=== PATIENT | male | born 1945 | race Caucasian/White ===

== ENCOUNTER 2018-10-30 06:56 | Day surgery (SDC) | payer MEDICARE ==
[~2018-10-30 06:56] MED LIST: ACETAMINOPHEN 1,000 MG/100 ML BTL IVPB ONE
[2018-10-30] MEDS ORDERED: PROPOFOL 10 MG/ML VIAL IV ONE (06:57)
[2018-10-30] MEDS ORDERED: MIDAZOLAM HCL 2MG/2ML VIAL IV ONE (06:57)
[2018-10-30] MEDS ORDERED: FENTANYL PF 100MCG/2ML VIAL IV ONE (06:57)
[2018-10-30] MEDS ORDERED: LIDOCAINE 2% MDV (20MG/ML) 20ML VIAL IV ONE (06:57)
[2018-10-30] MEDS ORDERED: RINGERS SOLUTION,LACTATED 1,000 ML IV ONE (07:45)
[2018-10-30] MEDS ORDERED: BUPIVACAINE 0.25% W/EPI MPF 30ML VIAL SQ ONE (09:09)
--- NOTE | 2018-10-31 09:00 | Operative Note ---
DATE OF SURGERY: 10/30/2018 SURGEON: Scott Monreal DO PREOPERATIVE DIAGNOSIS: Left lower extremity mass. POSTOPERATIVE DIAGNOSIS: Left lower extremity mass. OPERATION: Excision of left lower extremity mass measuring 3 cm down to the fascia. INDICATION: The patient is a 72-year-old male who has had a long-standing mass on the outer aspect of the left lower extremity. We did discuss excision. Risks, benefits, and alternatives were discussed. Risks include bleeding, infection, recurrence. He understood this fully. Thereafter, consent was signed and questions answered. PROCEDURE: The patient was taken to the operating room and placed in a supine position. General anesthesia was administered per the department of anesthesia. The patient's leg was prepped and draped in the usual fashion. The area around the mass was anesthetized with a total of 10 mL of 0.25% Sensorcaine with epinephrine. A 2.5 cm incision was made. This was carried down to the capsule of a firm irregular shaped mass. This was circumferentially dissected free from the surrounding tissue and then passed off the field. Complete achievement of hemostasis was noted. The wound was then closed with 3-0 Vicryl and 3-0 nylon. He was taken to the recovery room in stable condition. Final pathology pending. [facility]
== END 2018-10-30 09:44 | disposition home or self-care (01) ==
LOC: SUR 06:56
PROVIDERS: ATTEND Surgery
DX: R22.42 Localized swelling, mass and lump, left lower limb (principal); I10 Essential (primary) hypertension; E78.00 Pure hypercholesterolemia, unspecified; E11.9 Type 2 diabetes mellitus without complications; K21.9 Gastro-esophageal reflux disease without esophagitis; G62.9 Polyneuropathy, unspecified; G47.33 Obstructive sleep apnea (adult) (pediatric)
CPT/HCPCS: 36416; 82948; J7120